=== PATIENT | female | born 1960 | race Caucasian/White ===

== ENCOUNTER 2017-03-27 10:02 | Emergency (ER) | payer OTHER, MEDICAID ==
[~2017-03-27] VITALS: Ht 167.6 cm; Wt 100.0 kg
[2017-03-27 10:15] VITALS: BP 148/75; PULSE 87; RESP 16; TEMP 98.5; O2SAT 99
--- NOTE | 2017-03-27 10:25 | PD ---
HPI Chief Complaint: Psychiatric Symptoms Time Seen by Provider: 10:22 Travel History International Travel<30 days: No Contact w/Intl Traveler<30days: No Traveled to known affect area: No History of Present Illness HPI This patient was examined in the presence of a female nurse. 56-year-old female with no sick of being a past medical or psychiatric history presents under a Mcgrath act initiated by the Police Department. According to her paperwork, "made suicidal statements to Department [employer] because she did not receive child support. Deena Barahona stated she made statements of being on the verge of suicide every month because she did not receive the money." The patient reports that she has been frustrated with child support enforcement recently. She reports that over $100,000 or odor her for child support and she has been under stress financially. She reports that she expressed her frustration with the Department of child support however she never claimed suicidal intent or ideation. She denies any suicidal or homicidal ideation. She denies any drug or alcohol use. She denies any hallucinations. She has no medical complaints at this time. [facility] Past Medical History Medical History: Denies Significant Hx ?: Not Social History Alcohol Use: No Tobacco Use: No Substance Use: No Allergies-Medications (Allergen,Severity, Reaction): Coded Allergies: No Known Allergies (Unverified , 03/27/17) Reported Meds & Prescriptions Reported Meds & Active Scripts Active No Active Prescriptions or Reported Medications Review of Systems Except as stated in HPI: all other systems reviewed are Neg Physical Exam Narrative GENERAL: Well-developed well-nourished female in no acute distress SKIN: Warm and dry. HEAD: Atraumatic. Normocephalic. EYES: Pupils equal and round. No scleral icterus. No injection or drainage. ENT: No nasal bleeding or discharge. Mucous membranes pink and moist. NECK: Trachea midline. No JVD. CARDIOVASCULAR: Regular rate and rhythm. No murmur appreciated. RESPIRATORY: No accessory muscle use. Clear to auscultation. Breath sounds equal bilaterally. GASTROINTESTINAL: Abdomen soft, non-tender, nondistended. Hepatic and splenic margins not palpable. MUSCULOSKELETAL: No obvious deformities. No clubbing. No cyanosis. No edema. NEUROLOGICAL: Awake and alert. No obvious cranial nerve deficits. Motor grossly within normal limits. Normal speech. PSYCHIATRIC: Appropriate mood and affect; insight and judgment normal. Data Data Last Documented VS Vital Signs Date Time Temp Pulse Resp B/P (MAP) Pulse Ox O2 Delivery O2 Flow Rate FiO2 03/27/17 18:06 03/27/17 12:00 97.9 111 17 94 Orders Orders Psych Screen (03/27/17 10:21) Drug Screen, Random Urine (03/27/17 10:21) Diet Regular Basic (03/27/17 Lunch) Diet Regular Basic (03/27/17 Dinner) Ed Discharge Order (03/27/17 18:02) Labs Laboratory Tests Test 03/27/17 10:45 Urine Opiates Screen NEG Urine Barbiturates Screen NEG Urine Amphetamines Screen NEG Urine Benzodiazepines Screen NEG Urine Cocaine Screen NEG Urine Cannabinoids Screen POS MDM Medical Decision Making Medical Screen Exam Complete: Yes Emergency Medical Condition: Yes Medical Record Reviewed: Yes Differential Diagnosis Adjustment reaction, acute psychosis, major depressive disorder, substance induced mood disorder Narrative Course 56-year-old female with no significant medical history who presents under Mcgrath act for psychiatric evaluation. Mental health screening discussed with the patient. Psychiatric screen ordered. There would be no benefit for routine laboratory tests in regards to this patient's adjustment reaction. She is medically clear for psychiatric disposition. Diagnosis Primary Impression: Medical clearance for psychiatric admission Scripts No Active Prescriptions or Reported Meds Obdulio Berman Mar 27, 2017 10:25
[2017-03-27 12:00] VITALS: BP 142/101; PULSE 111; RESP 17; TEMP 97.9; O2SAT 94
--- NOTE | 2017-03-27 18:10 | PD ---
Physical Exam Date Seen by Provider: Mar 27, 2017 Time Seen by Provider: 18:08 Narrative 56 yo female here for scott act. patient was examined by previous provider please refer to his note. I was asked to dispo patient. Patient seen and evaluated by Psych nurse MINA. CHRISTOPH amaro. Agrees with outpatient psych eval. Denies medical complains to me. Feels ready to go home. Data Data Last Documented VS Vital Signs Date Time Temp Pulse Resp B/P (MAP) Pulse Ox O2 Delivery O2 Flow Rate FiO2 03/27/17 12:00 97.9 111 17 142/101 (115) 94 Orders Orders Psych Screen (03/27/17 10:21) Drug Screen, Random Urine (03/27/17 10:21) Diet Regular Basic (03/27/17 Lunch) Diet Regular Basic (03/27/17 Dinner) Ed Discharge Order (03/27/17 18:02) Labs Laboratory Tests Test 03/27/17 10:45 Urine Opiates Screen NEG Urine Barbiturates Screen NEG Urine Amphetamines Screen NEG Urine Benzodiazepines Screen NEG Urine Cocaine Screen NEG Urine Cannabinoids Screen POS MDM Medical Record Reviewed: Yes Supervised Visit with MARIBEL: No Differential Diagnosis depression vs suicidal ideation vs medical clearance Narrative Course 56 yo female here for scott act. patient was examined by previous provider please refer to his note. I was asked to dispo patient. Patient seen and evaluated by Psych nurse MINA. CHRISTOPH amaro. Agrees with outpatient psych eval. Denies medical complains to me. Feels ready to go home. Patient understands reasons to come back here. See ED if worst. F/u with PCP or SMA. Diagnosis Primary Impression: Medical clearance for psychiatric admission Patient Instructions: General Instructions Additional Instruction: F/u with PCP. See ED if worst. Med/Other Pt SpecificInfo: No Change to Meds Scripts No Active Prescriptions or Reported Meds Disposition: DISCHARGE HOME Condition: Stable Cedric Rosales Mar 27, 2017 18:10
--- NOTE | 2017-03-27 19:16 | PD ---
History of Present Illness Chief Complaint: Psychiatric Symptoms Time Seen by Provider: 17:20 Travel History International Travel<30 Days: No Contact w/Intl Traveler<30days: No Known affected area: No Legal Status Legal Status: Mcgrath Act History of Present Illness: History of Present Illness This patient is a 56 year old female with no previous psychiatric history who presents under a Mcgrath act initiated by the Police Department. According to her paperwork, "made suicidal statements to [employer] because she did not receive child support. Deena Barahona stated she made statements of being on the verge of suicide every month because she did not receive the money. " The patient reports that she was having a conversation over the telephone with a worker from the Department of revenue and she became upset because she has not been process her child support payment. She admits to having made the above statement but denies that she had any intent of wanting to harm herself. She goes on to say that she has no previous suicide attempts, no previous psychiatric history, and no intention of harming herself. She admits to being frustrated with her difficulty in obtaining the child support that is owed to her. Electronic medical record is reviewed and no previous contact with [facility] psychiatry Department. Her current toxicology is positive for cannabinoids. Patient was monitored in secure environment and she presented no behavioral dysregulation and no suicidality. [facility] Past Medical History Medical History: Denies Significant Hx Immunizations Current: Yes ?: Not Past Surgical History Surgical History: No Previous Surgery Psychiatric History Psychiatric History Hx Psychiatric Treatment: Denies any previous History of Inpatient Treatment: No Guns or firearms in home: No Social History female. Lives with her 2 children ages 15 years old and 10 years old. Currently unemployed. Hx Alcohol Use: No Hx Tobacco Use: No Hx Substance Use: Yes Substance Use Type: Marijuana Other Substances Used: Denies Hx of Substance Use Treatment: No Family Psychiatric History Negative Allergies-Medications (Allergen,Severity, Reaction): Coded Allergies: No Known Allergies (Unverified , 03/27/17) Reported Meds & Prescriptions Reported Meds & Active Scripts Active No Active Prescriptions or Reported Medications Review of Systems Except as stated in HPI: all other systems reviewed are Neg Mental Status Examination Appearance: Appropriate Consciousness: Alert Orientation: x4 Motor Activity: Normal gait Speech: Unremarkable Language: Adequate Fund of Knowledge: Adequate Attention and Concentration: Adequate Memory: Unremarkable Mood: Appropriate Affect: Appropriate Thought Process & Associations: Intact, Logical Thought Content: Appropriate Hallucination Type: None Delusion Type: None Suicidal Ideation: No Suicidal Plan: No Suicidal Intention: No Homicidal Ideation: No Homicidal Plan: No Homicidal Intention: No Insight: Adequate Judgment: Adequate MDM Medical Decision Making Medical Record Reviewed: Yes Assessment/Plan This patient is a 56 year old female with no previous psychiatric history who presents under a Mcgrath act initiated by the Police Department. According to her paperwork, "made suicidal statements to [employer] because she did not receive child support. Deena Barahona stated she made statements of being on the verge of suicide every month because she did not receive the money. " The patient reports that she was having a conversation over the telephone with a worker from the [employer] and she became upset because she has not been process her child support payment. She admits to having made the above statement but denies that she had any intent of wanting to harm herself. Patient does not present any evidence of any unstable mental illnesses defined under the Mcgrath act. She presents no suicidal or homicidal ideation, intent or plan. The patient is future oriented with adequate protective factors. She is concerned over the well being of her children and is frustrated when she attempts to advocate for their well-being and finds herself placed under Mcgrath act. The patient meets no criteria for the Mcgrath act. It will be lifted . Discharged to self. Orders Orders Psych Screen (03/27/17 10:21) Drug Screen, Random Urine (03/27/17 10:21) Diet Regular Basic (03/27/17 Lunch) Diet Regular Basic (03/27/17 Dinner) Ed Discharge Order (03/27/17 18:02) Results Vital Signs Date Time Temp Pulse Resp B/P (MAP) Pulse Ox O2 Delivery O2 Flow Rate FiO2 03/27/17 18:06 03/27/17 12:00 97.9 111 17 142/101 (115) 94 03/27/17 10:15 98.5 87 16 148/75 (99) 99 Laboratory Tests Test 03/27/17 10:45 Urine Opiates Screen NEG Urine Barbiturates Screen NEG Urine Amphetamines Screen NEG Urine Benzodiazepines Screen NEG Urine Cocaine Screen NEG Urine Cannabinoids Screen POS Diagnosis Primary Impression: Medical clearance for psychiatric admission Additional Impression: Adjustment disorder Psychiatrically Cleared: Yes Departure Forms: Tests/Procedures Patient Instructions: General Instructions, Mood Disorders (ED), Medical Clearance for Psychiatric Care (ED) Additional Instructions: DX: Adjustment Disorder Please return to ED if symptoms worsen. Med/ Other Pt Specific Info: No Meds Exist/No RX given Prescriptions No Active Prescriptions or Reported Meds Disposition: 01 DISCHARGE HOME Condition: Stable Problem Qualifiers Additional Impression: Adjustment disorder Qualified Codes: F43.20 - Adjustment disorder, unspecified Cari Grey [facility] Mar 27, 2017 19:16
== END 2017-03-27 19:17 | disposition home or self-care (01) ==
LOC: NEPJ 10:02
DX: F43.20 Adjustment disorder, unspecified (principal)
CPT/HCPCS: 80307; 99284